=== PATIENT | female | born 2000 | race African-American/Black ===

== ENCOUNTER 2018-01-15 16:09 | Emergency (ER) | payer SELFPAY | END 2018-01-15 16:40 | disposition home or self-care (01) | LOC: ER 16:09 | DX: J02.9 Acute pharyngitis, unspecified (principal); J06.9 Acute upper respiratory infection, unspecified; L08.9 Local infection of the skin and subcutaneous tissue, unspecified | CPT/HCPCS: 99283 ==

== ENCOUNTER 2020-05-10 01:55 | Inpatient (IN) | payer SELFPAY ==
[~2020-05-10] VITALS: Ht 157.5 cm; Wt 63.1 kg
[~2020-05-10 01:55] MED LIST: CEPH-264 PO; NAPR-683 PO
[2020-05-10] MEDS ORDERED: IV NORMAL SALINE 1000ML BAG 1,000 ML IV ONE (02:30)
--- NOTE | 2020-05-10 02:51 | PHYS DOC ---
Past Medical History Past Medical History: Anemia Past Surgical History: Appendectomy Additional Past Surgical Histo: unknown abd sx Smoking Status: Never Smoker Alcohol Use: Rarely Drug Use: None General Adult EDM: Chief Complaint: NEURO SYMPTOMS/DEFICITS HPI: HPI: Patient is a 20 year old F who presents with left sided numbness that began at 9pm while she was at work. Pt states that she then went to [employer] after work, and when the numbness did not go away she decided to come into the emergency room. She states that about 5 weeks ago she noticed that her L big toe went numb, which never went away, and then today her whole left side became numb. Pt denies dizziness or confusion. She also denies any fall or head trauma. She states that the left side feels weak, and that she cannot feel anything on the left side from her shoulder to her toes. Pt denies any alcohol or drug use. Patient denies . Review of Systems: Review of Systems: Constitutional: Denies fever or chills Eyes: Denies eye pain or discharge, HENT: Denies nasal congestion or sore throat Respiratory: Denies cough or shortness of breath Cardiovascular: Denies chest pain or palpitations GI: Denies abdominal pain, nausea, or vomiting : Denies dysuria or hematuria Musculoskeletal: Denies back pain or joint pain Integument: Denies rash or skin lesions Neurologic: Denies headache or changes in vision. Complete systems were reviewed and found to be within normal limits, except as documented in this note. Current Medications: Current Medications Medications (Trade) Dose Ordered Sig/Mikaela Start Time Stop Time Status Last Admin Dose Admin Sodium Chloride 1,000 ml @ 1,000 mls/hr 1X ONCE 05/10/20 02:30 05/10/20 03:29 Allergies: Allergies: Allergies Coded Allergies Type Severity Reaction Last Updated Verified shellfish derived Allergy Severe Anaphylaxis 05/10/20 Yes Penicillins Allergy Intermediate Itching 05/10/20 Yes Physical Exam: PE: Constitutional: Well developed, well nourished. HENT: Normocephalic, atraumatic, multiple facial piercings including bottom lip, tongue, face, and ears. Eyes: EOMI, conjunctiva injected b/l. Neck: Normal range of motion, supple Lungs & Thorax: No respiratory distress, equal chest rise and fall Abdomen: Soft, no tenderness Skin: Warm, dry, no erythema, no rash Back: No tenderness, no CVA tenderness Extremities: No tenderness, no edema. UE and LE pulses +2/2 b/l. Cap refill <2 sec b/l. Neurologic: Alert and oriented X 3, muscle strength +4/5 UE and LE on the left, +5/5 UE and LE on the R. Loss of sensation to complete left UE and LE. No loss of sensation to face. Negative babinski sign. Psychologic: Affect normal, judgment normal Current Patient Data: Vital Signs: Vital Signs Date Time Temp Pulse Resp B/P (MAP) Pulse Ox O2 Delivery O2 Flow Rate FiO2 05/10/20 02:10 98.1 79 18 117/65 (82) 100 Room Air 98.1 EKG: EKG: @0234 Normal sinus rhythm with no ST elevations or T wave inversions. QRS 66 ms, QT 396 ms, Qtc 404 ms. Radiology/Procedures: Radiology/Procedures: PROCEDURE: CT HEAD WO CONTRAST CT HEAD INDICATION: Reason: left sided weakness / Spl. Instructions: / History: COMPARISON: None Available. Exposure: One or more of the following individualized dose reduction techniques were utilized for this examination: 1. Automated exposure control 2. Adjustment of the mA and/or kV according to patient size 3. Use of iterative reconstruction technique TECHNIQUE: 5 mm contiguous axial images were obtained from the skull base to the vertex in both bone and soft tissue algorithm. FINDINGS: No abnormal attenuation within the brain parenchyma. Cavum septum pellucidum is identified. No evidence of acute intracranial hemorrhage. No extra-axial fluid collections. No mass effect or midline shift. Ventricular size is appropriate. Basal cisterns are patent. No fractures identified.Cortez-white differentiation is preserved.Globes and orbits are within normal limits. Paranasal sinuses and mastoid air cells are clear. IMPRESSION: No acute intracranial findings. Electronically signed by: Nick Huber MD (05/10/2020 3:26 AM) [id number] Course & Med Decision Making: Course & Med Decision Making 20 yo F presented for left sided numbness and loss of sensation that began at 2100. NIHSS [address] showed no intracranial findings. Labs obtained and posted to chart. EKG stable. Given last known well at 2100, patient outside window of time for TPA. Cannot obtain CTA secondary to significant shellfish allergy (reports swelling/edema after eating shellfish). Discussed case with Dr. Huerta (neurology), who recommends dissusion with regarding possible neurointervention. Discussed with Dr. Cano (neuro at ) regarding. Does not recommend transfer for neuro-intervention at this time. Recommends MRI/MRA this AM which can be preformed at [place]. Patient requiring admission for further evaluation and treatment. Discussed with Dr. Mathew (hospitalist) who is in agreement with admission. Discussed findings and plan with patient and her boyfriend, who acknowledge understanding and agreement. Dragon Disclaimer: Dragon Disclaimer: This electronic medical record was generated, in whole or in part, using a voice recognition dictation system. Departure Departure Impression: Primary Impression: Left sided numbness Additional Impression: Left-sided weakness Disposition: ADMITTED INPATIENT Admitting Physician: SRINIVAS Melton) Condition: GUARDED Referrals: NO PCP (PCP) Justicifation of Admission Dx: Justifications for Admission: Justification of Admission Dx: Yes Comments: Left sided weakness NIHSS Stroke Scale NIH Stroke Scale: NIH Stroke Scale Response (Comments) Value Level of Consciousness: 0 Alert/Responsive 0 LOC Questions: 0 Answers both correctly 0 LOC Commands: 0 Performs both tasks 0 Best Gaze: 0 Normal 0 Visual: 0 No visual loss 0 Facial Palsy: 0 Normal, symmetrical 0 Motor - Left Arm 0 No drift 0 Motor - Right Arm 0 No drift 0 Motor - Left Leg 1 Drift but can hold 1 Motor: Right Leg 0 No drift 0 Limb Ataxia: 0 Absent 0 Sensory: 2 Severe to total loss 2 Best Language: 0 Normal 0 Dysathria: 0 Normal 0 Extinction and Inattention: 0 Normal 0 Total 3 Critical Care Time Critical care time was 30 minutes which includes time at bedside, spent in discussion of patient's care with specialists and/or family members, with interpretation of laboratory and/or radiological studies and is exclusive of procedures. NEGRITO ACEVEDO DO May 10, 2020 02:50
[2020-05-10 03:02] LABS: BASO % 1 % (0-3); EOS # 0.4 x10^3/uL (0.0-0.7); EOS % 5 % (0-3); HEMATOCRIT 34.1 % (36.0-47.0); LYMPH # 3.3 x10^3/uL (1.0-4.8); LYMPH % 47 % (24-48); MEAN CORPUSCULAR HEMOGLOBIN 24 pg (25-35); MEAN CORPUSCULAR HGB CONC 32 g/dL (31-37); MEAN CORPUSCULAR VOLUME 75 fL (79-100); MONO # 0.7 x10^3/uL (0.0-1.1); MONO % 10 % (0-9); NEUT # 2.6 x10^3/uL (1.8-7.7); NEUT % 37 % (31-73); PLATELET COUNT 382 x10^3/uL (140-400); RED BLOOD COUNT 4.56 x10^6/uL (3.50-5.40); RED CELL DISTRIBUTION WIDTH 15.6 % (11.5-14.5); WHITE BLOOD COUNT 7.1 x10^3/uL (4.0-11.0)
[2020-05-10 03:09] LABS: BILIRUBIN,URINE NEGATIVE (NEG); CLARITY,URINE CLEAR; COLOR,URINE YELLOW; NITRITE,URINE NEGATIVE (NEG); PROTEIN,URINE NEGATIVE (NEG-TRACE)
[2020-05-10 03:11] LABS: CALCIUM 8.9 mg/dL (8.5-10.1); CREATININE 0.7 mg/dL (0.6-1.0); GFR 126.6; POTASSIUM 3.6 mmol/L (3.5-5.1)
[2020-05-10 03:16] LABS: ALBUMIN 3.8 g/dL (3.4-5.0); MAGNESIUM 2.1 mg/dL (1.8-2.4); TOTAL BILIRUBIN 0.2 mg/dL (0.2-1.0); TOTAL PROTEIN 7.8 g/dL (6.4-8.2)
[2020-05-10 03:17] LABS: BACTERIA,URINE FEW /HPF (0-FEW); RBC,URINE OCC /HPF (0-2); SQUAMOUS EPITHELIAL CELL,UR MOD /LPF; TRICHOMONAS,URINE PRESENT
[2020-05-10 03:24] LABS: BARBITURATES NEG (NEG); BENZODIAZEPINES NEG (NEG); CANNABINOIDS NEG (NEG); COCAINE NEG (NEG); METHADONE NEG (NEG); OPIATES NEG (NEG); PHENCYCLIDINE NEG (NEG)
--- NOTE | 2020-05-10 03:29 | RAD ---
CT HEAD INDICATION: Reason: left sided weakness / Spl. Instructions: / History: COMPARISON: None Available. Exposure: One or more of the following individualized dose reduction techniques were utilized for this examination: 1. Automated exposure control 2. Adjustment of the mA and/or kV according to patient size 3. Use of iterative reconstruction technique TECHNIQUE: 5 mm contiguous axial images were obtained from the skull base to the vertex in both bone and soft tissue algorithm. FINDINGS: No abnormal attenuation within the brain parenchyma. Cavum septum pellucidum is identified. No evidence of acute intracranial hemorrhage. No extra-axial fluid collections. No mass effect or midline shift. Ventricular size is appropriate. Basal cisterns are patent. No fractures identified.Cortez-white differentiation is preserved.Globes and orbits are within normal limits. Paranasal sinuses and mastoid air cells are clear. IMPRESSION: No acute intracranial findings. Electronically signed by: Nick Huber MD (05/10/2020 3:26 AM) [id number]
[2020-05-10 03:41] LABS: CREATINE KINASE 116 U/L (26-192)
[2020-05-10 03:41] LABS: AMPHETAMINE/METHAMPHETAMINE NEG (NEG)
[2020-05-10] MEDS ORDERED: ASPIRIN 325 MG TABLET PO ONE (04:00)
--- NOTE | 2020-05-10 04:11 | EKG ---
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
[2020-05-10] MEDS ORDERED: ONDANSETRON PF 4 MG/2 ML VIAL. IV PRN (04:30)
[2020-05-10 05:54] VITALS: BP 124/78
[2020-05-10] MEDS ORDERED: CETI10TA74 PO (06:15)
[2020-05-10] MEDS ORDERED: FERR-36 PO (06:39)
[2020-05-10 07:00] VITALS: BP 126/75
[2020-05-10] MEDS ORDERED: ACETAMINOPHEN 325 MG TABLET. PO PRN (08:45)
[2020-05-10] MEDS ORDERED: ACETAMINOPHEN 650 MG SUPP.RECT. PR PRN (08:45)
--- NOTE | 2020-05-10 09:22 | NUR ---
SW following. Discussed with RN, pt from home, room air, cardiac diet. MRI pending. If MRI negative, possible discharge home with self care. Med Assist following for self pay status. SW will continue to follow.
--- NOTE | 2020-05-10 09:36 | SSS ---
ADMIT DATE: 05/10/2020 SHORT STAY SUMMARY CHIEF COMPLAINT: Left-sided numbness. HISTORY OF PRESENT ILLNESS: The patient is a pleasant 20-year-old female who presented to the ER with left-sided numbness. We admitted the patient. We have consulted Dr. Lakhani. This morning, Dr. Lakhani saw, he feels like this is probably not a stroke. He is going to get an MRI just to be safe, but overall she looks good clinically. We are going to discharge. PAST MEDICAL HISTORY: Anemia and appendectomy. ALLERGIES: PENICILLIN AND SHELLFISH. FAMILY HISTORY: Diabetes. SOCIAL HISTORY: She works at [employer]. She does not drink, smoke or take drugs. MEDICATIONS: Reviewed, please refer to the MRAD. REVIEW OF SYSTEMS: GENERAL: No history of weight change, weakness or fevers. SKIN: No bruising, hair changes or rashes. EYES: No blurred, double or loss of vision. NOSE AND THROAT: No history of nosebleeds, hoarseness or sore throat. HEART: No history of palpitations, chest pain or shortness of breath on exertion. LUNGS: Denies cough, hemoptysis, wheezing or shortness of breath. GASTROINTESTINAL: Denies changes in appetite, nausea, vomiting, diarrhea or constipation. GENITOURINARY: No history of frequency, urgency, hesitancy or nocturia. NEUROLOGIC: Denies history of numbness, tingling, tremor or weakness. PSYCHIATRIC: No history of panic, anxiety or depression. ENDOCRINE: No history of heat or cold intolerance, polyuria or polydipsia. EXTREMITIES: Denies muscle weakness, joint pain, pain on walking or stiffness. PHYSICAL EXAMINATION: VITALS: Within normal limits and are stable. GENERAL: No apparent distress. Alert and oriented. HEENT: Normal cephalic atraumatic, external auditory canals are patent EYES: Extraocular muscles are intact, pupils are equally round and reactive to light and accommodation MUSCULOSKELETAL: Well developed, well nourished, good range of motion ENDOCRINE: No thyromegaly was palpated LYMPHATICS: No cervical chain or axillary nodes were noted HEMATOPOIETIC: No bruising NECK: Supple, no JVD, no thyromegaly was noted. LUNGS: Clear to auscultation in all lung yepez without rhonchi or wheezing. HEART: RRR, S1, S2 present. Peripheral pulses intact, no obvious murmurs were noted. ABDOMEN: Soft, nontender. Positive bowel sounds no organomegaly, normal bowel sounds. EXTREMITIES: Without any cyanosis, clubbing, or edema. Pedal pulses intact, Homans sign is negative. NEUROLOGIC: Normal speech, normal tone. A & O x3, moves all extremities, no obvious focal deficits. PSYCHIATRIC: Normal affect, normal mood. Stable. SKIN: No ulcerations or rashes, good skin turgor, no jaundice. VASCULAR: Good capillary refill, neurovascular bundle appears to be intact. ASSESSMENT AND PLAN: Resolving left-sided numbness. As previously stated, we consulted Neurology, Dr. Lakhani feels like this is probably not a stroke. We are going to get an MRI just to be safe. If the MRI is negative, we plan to discharge. DISPOSITION: Home. ACTIVITY: As tolerated. DIET: Low sodium. MEDICATIONS: Please see MRAD. TOTAL TIME: 32 minutes. SOHAIL TRINIDAD DO DR: SIDDHARTHA/cindy JOB#: [id number] / [id number]
[2020-05-10 11:00] VITALS: BP 128/70
--- NOTE | 2020-05-10 11:30 | PDOC2 ---
NEUROLOGY CONSULT Date of Service DOS: DATE: 05/10/20 TIME: 11:23 Reason for Consult Reason for Consult: Left-sided numbness Referring Physician Referring Physician: Dr. Saravia Source Source: Chart review, Patient History of Present Illness History of Present Illness The patient is a 20-year-old right-handed female who had acute onset of left- sided numbness last night at 9 PM. She came to the emergency department at about 2 AM. I discussed the case with Dr. Whaley, we agreed she was not an alteplase candidate. I requested that he discussed the case with stroke neurology and they declined transfer. Patient noticed some left foot numbness starting as long as a month ago. She denies headache, diplopia, dysphagia, dysarthria, weakness, cognitive change, prior history of stroke, seizure, or head injury. She said that she had a blood clot in her leg when she was a child. She has a shellfish allergy so we did not do a CT angiogram Past Medical History Cardiovascular: Other (DVT?) Heme/Onc: Anemia NOS Past Surgical History Past Surgical History: Appendectomy Family History Family History: Cancer, Hypertension Social History Social History She grew up in foster care, no alcohol, tobacco, street drugs, works at [employer] Current Medications Current Medications Current Medications Sodium Chloride 1,000 ml @ 1,000 mls/hr 1X ONCE IV Last administered on 05/10/20at 02:53; Start 05/10/20 at 02:30; Stop 05/10/20 at 03:29; Status DC Aspirin (Liborio Aspirin) 325 mg 1X ONCE PO Last administered on 05/10/20at 04:28; Start 05/10/20 at 04:00; Stop 05/10/20 at 04:01; Status DC Ondansetron HCl (Zofran) 4 mg PRN Q8HRS PRN IV NAUSEA/VOMITING 1ST CHOICE; Start 05/10/20 at 04:30; Stop 05/11/20 at 04:29 Acetaminophen (Tylenol) 650 mg PRN Q6HRS PRN PO TEMP > 100.4F; Start 05/10/20 at 08:45 Acetaminophen (Tylenol Supp) 650 mg PRN Q4HRS PRN GA TEMP > 100.4F; Start 05/10/20 at 08:45 Aspirin (Ecotrin) 325 mg DAILYWBKFT PO ; Start 05/11/20 at 08:00 Aspirin (Aspirin Rectal Supp) 300 mg PRN DAILY PRN GA IF UNABLE TO TAKE PO; Start 05/11/20 at 08:45 Active Scripts Active Naprosyn (Naproxen) 500 Mg Tablet 1 Tab PO BID Reported Iron (Ferrous Sulfate) 325 Mg Tablet 1 Tab PO DAILY 30 Days Zyrtec (Cetirizine Hcl) 10 Mg Tablet 1 Tab PO DAILY Allergies Allergies: Coded Allergies: shellfish derived (Verified Allergy, Severe, Anaphylaxis, 05/10/20) Penicillins (Verified Allergy, Intermediate, Itching, 05/10/20) ROS Review of System Negative for fever, chills, weight loss, shortness of breath, chest pain, indigestion, hematochezia, melena, and dysuria. Full 14-point review of systems is negative. Physical Exam Physical Examination General: Well-developed, well-nourished black female in no acute distress HEENT: Normocephalic andatraumatic.Temporal arteriespulsatile and nontender. Neck: Supple without bruit, no meningismus Musculoskeletal: Stability:see neurologic. Gait exam:see neurologic. Tone:see neurologic.Strength:see neurologic. Neurological: Mental Status:intact, orientation, memory, attention span/concentration, language, fund of knowledge normal. Cranial Nerves:Pupils equal and reactive to light, extraocular movements areintact, visual yepez are full to confrontation. Facial sensation is normal. There is no facial asymmetry. Vestibulo-ocular reflex is intact. Palate elevates and tongue protrudes in midline. All other cranial related problems are negative except as mentioned before.Reflexes:2+ and symmetric with flexor plantar responses. Motor:5/5 strength with normal tone and bulk. Coordination:Finger-nose finger and fkwr-sd-tart testing are normal. Rapid alternating movements and fine finger movements are intact. Gait:Normal, including tandem. Sensory:Complete anesthesia below the neck including the left-sided extremities and torso, sp litting the midline. Complete anesthesia below the neck including left torso splitting the midline, left arm and leg. There is a sharp line of demarcation at the clavicle. Vitals VITALS Vital Signs Date Time Temp Pulse Resp B/P (MAP) Pulse Ox O2 Delivery O2 Flow Rate FiO2 05/10/20 07:00 98.6 70 20 126/75 (92) 99 Room Air 98.6 Labs Labs Laboratory Tests Test 05/10/20 02:45 05/10/20 02:50 05/10/20 03:04 05/10/20 07:35 White Blood Count 7.1 x10^3/uL (4.0-11.0) Red Blood Count 4.56 x10^6/uL (3.50-5.40) Hemoglobin 11.0 g/dL (12.0-15.5) Hematocrit 34.1 % (36.0-47.0) Mean Corpuscular Volume 75 fL (79-100) Mean Corpuscular Hemoglobin 24 pg (25-35) Mean Corpuscular Hemoglobin Concent 32 g/dL (31-37) Red Cell Distribution Width 15.6 % (11.5-14.5) Platelet Count 382 x10^3/uL (140-400) Neutrophils (%) (Auto) 37 % (31-73) Lymphocytes (%) (Auto) 47 % (24-48) Monocytes (%) (Auto) 10 % (0-9) Eosinophils (%) (Auto) 5 % (0-3) Basophils (%) (Auto) 1 % (0-3) Neutrophils # (Auto) 2.6 x10^3/uL (1.8-7.7) Lymphocytes # (Auto) 3.3 x10^3/uL (1.0-4.8) Monocytes # (Auto) 0.7 x10^3/uL (0.0-1.1) Eosinophils # (Auto) 0.4 x10^3/uL (0.0-0.7) Basophils # (Auto) 0.0 x10^3/uL (0.0-0.2) Sodium Level 139 mmol/L (136-145) Potassium Level 3.6 mmol/L (3.5-5.1) Chloride Level 103 mmol/L (98-107) Carbon Dioxide Level 27 mmol/L (21-32) Anion Gap 9 (6-14) Blood Urea Nitrogen 12 mg/dL (7-20) Creatinine 0.7 mg/dL (0.6-1.0) Estimated GFR (Cockcroft-Gault) 126.6 BUN/Creatinine Ratio 17 (6-20) Glucose Level 90 mg/dL (70-99) Lactic Acid Level 0.6 mmol/L (0.4-2.0) Calcium Level 8.9 mg/dL (8.5-10.1) Magnesium Level 2.1 mg/dL (1.8-2.4) Total Bilirubin 0.2 mg/dL (0.2-1.0) Aspartate Amino Transf (AST/SGOT) 15 U/L (15-37) Alanine Aminotransferase (ALT/SGPT) 19 U/L (14-59) Alkaline Phosphatase 59 U/L (46-116) Creatine Kinase 116 U/L (26-192) Creatine Kinase MB (Mass) < 0.5 ng/mL (0.0-3.6) Creatine Kinase MB Relative Index % (0-4) Troponin I Quantitative < 0.017 ng/mL (0.000-0.055) < 0.017 ng/mL (0.000-0.055) Total Protein 7.8 g/dL (6.4-8.2) Albumin 3.8 g/dL (3.4-5.0) Albumin/Globulin Ratio 1.0 (1.0-1.7) Ethyl Alcohol Level < 10 mg/dL (0-10) Urine Collection Type Unknown Urine Color Yellow Urine Clarity Clear Urine pH 6.0 (<5.0-8.0) Urine Specific Franklin 1.020 (1.000-1.030) Urine Protein Negative mg/dL (NEG-TRACE) Urine Glucose (UA) Negative mg/dL (NEG) Urine Ketones (Stick) Negative mg/dL (NEG) Urine Blood Negative (NEG) Urine Nitrite Negative (NEG) Urine Bilirubin Negative (NEG) Urine Urobilinogen Dipstick 1.0 mg/dL (0.2 mg/dL) Urine Leukocyte Esterase Negative (NEG) Urine RBC Occ /HPF (0-2) Urine WBC 1-4 /HPF (0-4) Urine Squamous Epithelial Cells Mod /LPF Urine Bacteria Few /HPF (0-FEW) Urine Mucus Marked /LPF Urine Trichomonas Present Urine Opiates Screen Neg (NEG) Urine Methadone Screen Neg (NEG) Urine Barbiturates Neg (NEG) Urine Phencyclidine Screen Neg (NEG) Urine Amphetamine/Methamphetamine Neg (NEG) Urine Benzodiazepines Screen Neg (NEG) Urine Cocaine Screen Neg (NEG) Urine Cannabinoids Screen Neg (NEG) Urine Ethyl Alcohol Neg (NEG) Bedside Urine HCG, Qualitative Hcg negative (Negative) Laboratory Tests Test 05/10/20 02:45 05/10/20 02:50 05/10/20 03:04 05/10/20 07:35 White Blood Count 7.1 x10^3/uL (4.0-11.0) Red Blood Count 4.56 x10^6/uL (3.50-5.40) Hemoglobin 11.0 g/dL (12.0-15.5) Hematocrit 34.1 % (36.0-47.0) Mean Corpuscular Volume 75 fL (79-100) Mean Corpuscular Hemoglobin 24 pg (25-35) Mean Corpuscular Hemoglobin Concent 32 g/dL (31-37) Red Cell Distribution Width 15.6 % (11.5-14.5) Platelet Count 382 x10^3/uL (140-400) Neutrophils (%) (Auto) 37 % (31-73) Lymphocytes (%) (Auto) 47 % (24-48) Monocytes (%) (Auto) 10 % (0-9) Eosinophils (%) (Auto) 5 % (0-3) Basophils (%) (Auto) 1 % (0-3) Neutrophils # (Auto) 2.6 x10^3/uL (1.8-7.7) Lymphocytes # (Auto) 3.3 x10^3/uL (1.0-4.8) Monocytes # (Auto) 0.7 x10^3/uL (0.0-1.1) Eosinophils # (Auto) 0.4 x10^3/uL (0.0-0.7) Basophils # (Auto) 0.0 x10^3/uL (0.0-0.2) Sodium Level 139 mmol/L (136-145) Potassium Level 3.6 mmol/L (3.5-5.1) Chloride Level 103 mmol/L (98-107) Carbon Dioxide Level 27 mmol/L (21-32) Anion Gap 9 (6-14) Blood Urea Nitrogen 12 mg/dL (7-20) Creatinine 0.7 mg/dL (0.6-1.0) Estimated GFR (Cockcroft-Gault) 126.6 BUN/Creatinine Ratio 17 (6-20) Glucose Level 90 mg/dL (70-99) Lactic Acid Level 0.6 mmol/L (0.4-2.0) Calcium Level 8.9 mg/dL (8.5-10.1) Magnesium Level 2.1 mg/dL (1.8-2.4) Total Bilirubin 0.2 mg/dL (0.2-1.0) Aspartate Amino Transf (AST/SGOT) 15 U/L (15-37) Alanine Aminotransferase (ALT/SGPT) 19 U/L (14-59) Alkaline Phosphatase 59 U/L (46-116) Creatine Kinase 116 U/L (26-192) Creatine Kinase MB (Mass) < 0.5 ng/mL (0.0-3.6) Creatine Kinase MB Relative Index % (0-4) Troponin I Quantitative < 0.017 ng/mL (0.000-0.055) < 0.017 ng/mL (0.000-0.055) Total Protein 7.8 g/dL (6.4-8.2) Albumin 3.8 g/dL (3.4-5.0) Albumin/Globulin Ratio 1.0 (1.0-1.7) Ethyl Alcohol Level < 10 mg/dL (0-10) Urine Collection Type Unknown Urine Color Yellow Urine Clarity Clear Urine pH 6.0 (<5.0-8.0) Urine Specific [place] 1.020 (1.000-1.030) Urine Protein Negative mg/dL (NEG-TRACE) Urine Glucose (UA) Negative mg/dL (NEG) Urine Ketones (Stick) Negative mg/dL (NEG) Urine Blood Negative (NEG) Urine Nitrite Negative (NEG) Urine Bilirubin Negative (NEG) Urine Urobilinogen Dipstick 1.0 mg/dL (0.2 mg/dL) Urine Leukocyte Esterase Negative (NEG) Urine RBC Occ /HPF (0-2) Urine WBC 1-4 /HPF (0-4) Urine Squamous Epithelial Cells Mod /LPF Urine Bacteria Few /HPF (0-FEW) Urine Mucus Marked /LPF Urine Trichomonas Present Urine Opiates Screen Neg (NEG) Urine Methadone Screen Neg (NEG) Urine Barbiturates Neg (NEG) Urine Phencyclidine Screen Neg (NEG) Urine Amphetamine/Methamphetamine Neg (NEG) Urine Benzodiazepines Screen Neg (NEG) Urine Cocaine Screen Neg (NEG) Urine Cannabinoids Screen Neg (NEG) Urine Ethyl Alcohol Neg (NEG) Bedside Urine HCG, Qualitative Hcg negative (Negative) Images Images CT HEAD INDICATION: Reason: left sided weakness / Spl. Instructions: / History: COMPARISON: None Available. Exposure: One or more of the following individualized dose reduction techniques were utilized for this examination: 1. Automated exposure control 2. Adjustment of the mA and/or kV according to patient size 3. Use of iterative reconstruction technique TECHNIQUE: 5 mm contiguous axial images were obtained from the skull base to the vertex in both bone and soft tissue algorithm. FINDINGS: No abnormal attenuation within the brain parenchyma. Cavum septum pellucidum is identified. No evidence of acute intracranial hemorrhage. No extra-axial fluid collections. No mass effect or midline shift. Ventricular size is appropriate. Basal cisterns are patent. No fractures identified.Cortez-white differentiation is preserved.Globes and orbits are within normal limits. Paranasal sinuses and mastoid air cells are clear. IMPRESSION: No acute intracranial findings. Assessment/Plan Assessment/Plan Impression: The distribution of sensory symptoms is not consistent with organic etiology. Recommendations: MRI of the brain, further workup depending on results. She has multiple piercings that she cannot remove, if necessary we will have them removed. Rehabilitation screening Thank you for letting me help the patient's care. JANNET GRANDA MD May 10, 2020 11:30
--- NOTE | 2020-05-10 14:29 | NUR ---
Patient requested and received Tylenol for c/o headache. Patient related that she has history of migraine headaches, sometimes severe, and indicated left forehead, temporal area as area usually affected. No c/o n/v, light sensitivity, dizziness.
[2020-05-10 14:45] VITALS: BP 124/75
--- NOTE | 2020-05-10 17:00 | NUR ---
Received patient to room 528. Patient transferred from w/c to bed with gait belt,2 person mod assist, walker. Call light and phone placed within easy reach. Patient oriented to room, unit. No visitors with patient at this time.
[2020-05-10 19:00] VITALS: BP 100/65
[2020-05-10 23:00] VITALS: BP 130/60
[2020-05-11 03:00] VITALS: BP 110/55
[2020-05-11 06:27] LABS: CHOLESTEROL/HDL RATIO 2.9
[2020-05-11 07:05] VITALS: BP 132/62
[2020-05-11] MEDS ORDERED: ASPIRIN ENTERIC COATED 325 MG TABLET.DR. PO SCH (08:00)
--- NOTE | 2020-05-11 08:35 | RAD ---
Examination: CT HEAD WO CONTRAST History: Left-sided paresthesias; repeat CT scan (were unable to have MRI today due to unable to remove pierc Comparison/Correlation: 05/10/2020 CT head without contrast Findings: Axial images of the head were obtained without contrast. Cavum septum callosum are currently noted. No intracranial hemorrhage, midline shift, or mass effect. No evolving infarct identified. Bony structures are unremarkable. Impression: No suspicious process. No interval change. Electronically signed by: Richard Vera MD (05/11/2020 8:33 AM) [id number]
--- NOTE | 2020-05-11 08:43 | PDOC ---
PROGRESS NOTES Date of Service DATE: 05/11/20 TIME: 08:38 Assessment Problems Medical Problems: (1) Left-sided weakness Status: Acute The distribution of sensory symptoms is not consistent with organic etiology. I suspect conversion disorder. Patient is better today. Plan We could not get the piercings removed, therefore could not do MRI Therefore repeat head CT today Patient can have the piercings removed as an outpatient and contact my office if she wishes to have the MRI studies as an outpatient See how she does in rehab today, I favor discharging to home Subjective Denies pain Objective Vital Signs Date Time Temp Pulse Resp B/P (MAP) Pulse Ox O2 Delivery O2 Flow Rate FiO2 05/11/20 07:05 98.2 55 18 132/62 (85) 100 Room Air 98.2 Intake and Output 05/11/20 07:00 Intake Total 1100 ml Balance 1100 ml Intake Oral 1100 ml # Voids 5 PHYSICAL EXAM Sleeping at first, refuses gait examination at first, later is alert. Oriented to time, place and person. PERRL. EOMI. CN: no focal findings. Muscle tone: normal. Muscle strength: 5/5, no drift DTR: 2+ Plantar reflex: Flexor Gait: A little unsteady, not consistent with hemiparesis, ataxia, or other organic gait disorder Sensory exam: Patchy sensory loss on left, better than yesterday. No cerebellar signs elicited. Review of Relevant I have reviewed the following items vicente (where applicable) has been applied. Labs Laboratory Tests Test 05/10/20 02:45 05/10/20 02:50 05/10/20 03:04 05/10/20 07:35 White Blood Count 7.1 x10^3/uL (4.0-11.0) Red Blood Count 4.56 x10^6/uL (3.50-5.40) Hemoglobin 11.0 g/dL (12.0-15.5) Hematocrit 34.1 % (36.0-47.0) Mean Corpuscular Volume 75 fL (79-100) Mean Corpuscular Hemoglobin 24 pg (25-35) Mean Corpuscular Hemoglobin Concent 32 g/dL (31-37) Red Cell Distribution Width 15.6 % (11.5-14.5) Platelet Count 382 x10^3/uL (140-400) Neutrophils (%) (Auto) 37 % (31-73) Lymphocytes (%) (Auto) 47 % (24-48) Monocytes (%) (Auto) 10 % (0-9) Eosinophils (%) (Auto) 5 % (0-3) Basophils (%) (Auto) 1 % (0-3) Neutrophils # (Auto) 2.6 x10^3/uL (1.8-7.7) Lymphocytes # (Auto) 3.3 x10^3/uL (1.0-4.8) Monocytes # (Auto) 0.7 x10^3/uL (0.0-1.1) Eosinophils # (Auto) 0.4 x10^3/uL (0.0-0.7) Basophils # (Auto) 0.0 x10^3/uL (0.0-0.2) Sodium Level 139 mmol/L (136-145) Potassium Level 3.6 mmol/L (3.5-5.1) Chloride Level 103 mmol/L (98-107) Carbon Dioxide Level 27 mmol/L (21-32) Anion Gap 9 (6-14) Blood Urea Nitrogen 12 mg/dL (7-20) Creatinine 0.7 mg/dL (0.6-1.0) Estimated GFR (Cockcroft-Gault) 126.6 BUN/Creatinine Ratio 17 (6-20) Glucose Level 90 mg/dL (70-99) Lactic Acid Level 0.6 mmol/L (0.4-2.0) Calcium Level 8.9 mg/dL (8.5-10.1) Magnesium Level 2.1 mg/dL (1.8-2.4) Total Bilirubin 0.2 mg/dL (0.2-1.0) Aspartate Amino Transf (AST/SGOT) 15 U/L (15-37) Alanine Aminotransferase (ALT/SGPT) 19 U/L (14-59) Alkaline Phosphatase 59 U/L (46-116) Creatine Kinase 116 U/L (26-192) Creatine Kinase MB (Mass) < 0.5 ng/mL (0.0-3.6) Creatine Kinase MB Relative Index % (0-4) Troponin I Quantitative < 0.017 ng/mL (0.000-0.055) < 0.017 ng/mL (0.000-0.055) Total Protein 7.8 g/dL (6.4-8.2) Albumin 3.8 g/dL (3.4-5.0) Albumin/Globulin Ratio 1.0 (1.0-1.7) Ethyl Alcohol Level < 10 mg/dL (0-10) Urine Collection Type Unknown Urine Color Yellow Urine Clarity Clear Urine pH 6.0 (<5.0-8.0) Urine Specific [place] 1.020 (1.000-1.030) Urine Protein Negative mg/dL (NEG-TRACE) Urine Glucose (UA) Negative mg/dL (NEG) Urine Ketones (Stick) Negative mg/dL (NEG) Urine Blood Negative (NEG) Urine Nitrite Negative (NEG) Urine Bilirubin Negative (NEG) Urine Urobilinogen Dipstick 1.0 mg/dL (0.2 mg/dL) Urine Leukocyte Esterase Negative (NEG) Urine RBC Occ /HPF (0-2) Urine WBC 1-4 /HPF (0-4) Urine Squamous Epithelial Cells Mod /LPF Urine Bacteria Few /HPF (0-FEW) Urine Mucus Marked /LPF Urine Trichomonas Present Urine Opiates Screen Neg (NEG) Urine Methadone Screen Neg (NEG) Urine Barbiturates Neg (NEG) Urine Phencyclidine Screen Neg (NEG) Urine Amphetamine/Methamphetamine Neg (NEG) Urine Benzodiazepines Screen Neg (NEG) Urine Cocaine Screen Neg (NEG) Urine Cannabinoids Screen Neg (NEG) Urine Ethyl Alcohol Neg (NEG) Bedside Urine HCG, Qualitative Hcg negative (Negative) Test 05/10/20 10:15 05/11/20 04:18 Troponin I Quantitative < 0.017 ng/mL (0.000-0.055) Triglycerides Level 122 mg/dL (0-150) Cholesterol Level 109 mg/dL (0-200) LDL Cholesterol, Calculated 47 mg/dL (0-100) VLDL Cholesterol, Calculated 24 mg/dL (0-40) Non-HDL Cholesterol Calculated 71 mg/dL (0-129) HDL Cholesterol 38 mg/dL (40-60) Cholesterol/HDL Ratio 2.9 Laboratory Tests Test 05/10/20 10:15 05/11/20 04:18 Troponin I Quantitative < 0.017 ng/mL (0.000-0.055) Triglycerides Level 122 mg/dL (0-150) Cholesterol Level 109 mg/dL (0-200) LDL Cholesterol, Calculated 47 mg/dL (0-100) VLDL Cholesterol, Calculated 24 mg/dL (0-40) Non-HDL Cholesterol Calculated 71 mg/dL (0-129) HDL Cholesterol 38 mg/dL (40-60) Cholesterol/HDL Ratio 2.9 Medications Current Medications Sodium Chloride 1,000 ml @ 1,000 mls/hr 1X ONCE IV Last administered on 05/10/20at 02:53; Start 05/10/20 at 02:30; Stop 05/10/20 at 03:29; Status DC Aspirin (Liborio Aspirin) 325 mg 1X ONCE PO Last administered on 05/10/20at 04:28; Start 05/10/20 at 04:00; Stop 05/10/20 at 04:01; Status DC Ondansetron HCl (Zofran) 4 mg PRN Q8HRS PRN IV NAUSEA/VOMITING 1ST CHOICE; Start 05/10/20 at 04:30; Stop 05/11/20 at 04:29; Status DC Acetaminophen (Tylenol) 650 mg PRN Q6HRS PRN PO TEMP > 100.4F Last administered on 05/10/20at 14:29; Start 05/10/20 at 08:45 Acetaminophen (Tylenol Supp) 650 mg PRN Q4HRS PRN [place] TEMP > 100.4F; Start 05/10/20 at 08:45 Aspirin (Ecotrin) 325 mg DAILYWBKFT PO Last administered on 05/11/20at 08:26; Start 05/11/20 at 08:00 Aspirin (Aspirin Rectal Supp) 300 mg PRN DAILY PRN [place] IF UNABLE TO TAKE PO; Start 05/11/20 at 08:45 Active Scripts Active Naprosyn (Naproxen) 500 Mg Tablet 1 Tab PO BID Reported Iron (Ferrous Sulfate) 325 Mg Tablet 1 Tab PO DAILY 30 Days Zyrtec (Cetirizine Hcl) 10 Mg Tablet 1 Tab PO DAILY Vitals/I & O Vital Sign - Last 24 Hours 05/10/20 05/10/20 05/10/20 05/10/20 11:00 14:45 19:00 20:15 Temp 98.0 98.0 99.0 98.0 98.0 99.0 Pulse 68 72 69 Resp 19 19 20 B/P (MAP) 128/70 (89) 124/75 (91) 100/65 (77) Pulse Ox 97 98 100 O2 Delivery Room Air Room Air Room Air Room Air 05/10/20 05/11/20 05/11/20 23:00 03:00 07:05 Temp 98.5 98.7 98.2 98.5 98.7 98.2 Pulse 58 63 55 Resp 20 18 18 B/P (MAP) 130/60 (83) 110/55 (73) 132/62 (85) Pulse Ox 99 94 100 O2 Delivery Room Air Room Air Room Air Intake and Output 05/10/20 05/10/20 05/11/20 15:00 23:00 07:00 Intake Total 300 ml 300 ml 500 ml Balance 300 ml 300 ml 500 ml Justicifation of Admission Dx: Justifications for Admission: Justification of Admission Dx: Yes JANNET GRANDA MD May 11, 2020 08:43
[2020-05-11] MEDS ORDERED: ASPIRIN RECTAL 300 MG SUPP. PR PRN (08:45)
--- NOTE | 2020-05-11 10:32 | NUR ---
SW following. Discussed with RN, discharge order for home with self care. Therapy notes stating pt is here from [place], living in a motel whilst she works for [employer]. PT/OT recommending acute rehab- pt does not have insurance to cover acute rehab. Dr. Lakhani note stating favoring discharge to home. No further SW needs.
[2020-05-11 11:05] VITALS: BP 110/57
--- NOTE | 2020-05-11 15:55 | NUR ---
Discharge Note: Patient was discharged home with self care. Patients IV was discontinued without any complications per RN. Patient was given discharge summary/instructions, follow-ups, and educational material. Patient did not have any further questions or concerns. Patient was taken down to the main entrance where her was here to pick her up, via wheelchair with all personal belongings.
== END 2020-05-11 16:00 | disposition home or self-care (01) | DRG 93 ==
LOC: ER 01:55 → 5 NORTH 04:14
PROVIDERS: ADMIT Internal Medicine; ATTEND Internal Medicine
DX: R20.0 Anesthesia of skin (principal); R53.1 Weakness; Z82.49 Family history of ischemic heart disease and other diseases of the circulatory system; Z83.3 Family history of diabetes mellitus; Z90.49 Acquired absence of other specified parts of digestive tract; Z88.0 Allergy status to penicillin; Z91.013 Allergy to seafood; Z79.899 Other long term (current) drug therapy
CPT/HCPCS: 36415; 70450; 80053; 80061; 80307; 81001; 81025; 82553; 83605; 83735; 84484; 85025; 93005; 96360; 99291; G0480; J7030; 92610-GN; 97110-GP; 97116-GP; G0378